=== PATIENT | male | born 1980 | race Hispanic/Latino ===

== ENCOUNTER 2022-02-17 02:00 | Emergency (ER) | payer SELFPAY ==
--- NOTE | 2022-02-17 02:38 | Emergency Department Report ---
ED CPR HPI - General Stated Complaint: RESPIRATORY ARREST Time Seen by Provider: 02/17/22 02:33 Source: EMS Mode of arrival: Stretcher - History of Present Illness Initial Comments: Patient is a 41-year-old male brought in by EMS for cardiopulmonary arrest. Patient reportedly was at home and went to the bathroom. Family states they heard him fall in the bathroom and went to find him unresponsive. CPR initiated and EMS called. EMS arrived and initiated ACLS measures. EMS reports patient was bradycardic. Unable to establish IV in the field and initiated transcutaneous pacing. Patient was also intubated in the field. - Related Data Allergies Allergy/AdvReac Type Severity Reaction Status Date / Time No Known Allergies Allergy Verified 02/17/22 02:26 ED Review of Systems ROS: Stated complaint: RESPIRATORY ARREST Other details as noted in HPI Comment: Unobtainable due to pts medical conditions ED Physical Exam - General Limitations: Altered Mental Status, Physical Limitation General appearance: other (Unresponsive) - Head Head exam: Present: atraumatic, normocephalic - Eye Pupils: Present: mydriatic, other (Pupils fixed) - Respiratory Respiratory exam: Present: other (No spontaneous respirations. Patient intubated and being bagged.) - Cardiovascular Cardiovascular Exam: Present: other (No palpable pulse) - GI/Abdominal GI/Abdominal exam: Present: soft. Absent: distended - Rectal Rectal exam: Present: deferred - Neurological Exam Neurological exam: Present: other (GCS 3 T) - Skin Skin exam: Present: warm, dry, intact, cyanosis (Patient cyanotic in the face) ED Medical Decision Making - Medical Decision Making Patient brought in by EMS status post witnessed cardiopulmonary arrest. Transcutaneous pacing initiated in the field as well as endotracheal intubation. On arrival patient had no palpable pulse. Pacing discontinued and compressions initiated. Patient given multiple ACLS drugs with transient return of ROSC however patient failed to maintain a palpable pulse. Despite continued efforts we were unable to regain ROSC. Patient . Critical care attestation.: If time is entered above; I have spent that time in minutes in the direct care of this critically ill patient, excluding procedure time. ED Disposition Clinical Impression: Cardiopulmonary arrest Disposition: 20 Is pt being admited?: No
[2022-02-17] MEDS ORDERED: AMIODARONE 900 MG in DEXTROSE 5% IN WATER 482 ML IV SCH (03:00)
[2022-02-17 05:00] VITALS: BP 170/100
[2022-02-17] MEDS ORDERED: EPINEPHrine 1 MG/10 ML SYRINGE ONE (05:21)
[2022-02-17] MEDS ORDERED: ATROPINE 0.1% (1 MG/10 ML) CARDIAC SYRINGE ONE (05:21)
== END 2022-02-17 04:17 ==
LOC: ED 02:00
DX: I46.9 Cardiac arrest, cause unspecified (principal)
CPT/HCPCS: 92950; 99285; J0171; J0461; J7060; J0282